=== PATIENT | female | born 1940 | race Caucasian/White ===

== ENCOUNTER 2018-03-25 21:06 | Inpatient (IN) | payer MEDICARE, MEDICAID ==
--- NOTE | 2018-03-25 21:33 | ED Physician Chart ---
ED Chief Complaint/HPI - Patient Information Date Seen:: 03/25/18 Time Seen:: 21:33 Chief Complaint:: Increased agitation History of Present Illness:: 77 yo [place]er-speaking female with history of Alzheimer's disease, DM2, adult failure to thrive, osteoarthritis, was brought from SNF to ER for evaluation of increased agitation and aggressive behavior. Patient is alert, confused, forgetful, paranoid and easily agitated. Allergies:: Allergies Allergy/AdvReac Type Severity Reaction Status Date / Time No Known Allergies Allergy Verified 03/25/18 21:28 ED Review of Systems - Review of Systems General/Constitutional: No fever, No chills Skin: No bruising Head: No headache Eyes: No pain ENT: No nasal drainage Neck: No neck pain Cardio Vascular: No chest pain Pulmonary: No SOB GI: No nausea, No vomiting Musculoskeletal: Bone or joint pain Psychiatric: Prior psych history Neurological: No focal symptoms ED Past Medical History - Past Medical History Past Medical History: DM, Arthritis, Dementia, Other (Alzheimer's disease, adult failure to thrive) Social History: Non Smoker, No Alcohol, No Drug Use Psychiatricy History: Dementia Family Medical History - Family Member Mother History Unknown: Yes Ethnicity: Unknown Living Status: Unknown ED Physical Exam - Physical Examination General/Constitutional: Awake Head: Atraumatic Eyes: PERRL Skin: No ecchymosis ENMT: Nasal exam nl Neck: No nuchal rigidity Respiratory: No Wheeze/Rhonchi/Rales Cardio Vascular: RRR, No murmur, gallop, rubs, NL S1 S2 GI: No tenderness/rebounding/guarding Extremities: normal strength in all extremities Neuro/Psych: No focal deficits ED Labs/Radiology/EKG Results - Lab Results Results: Laboratory Last Values WBC 10.1 Th/cmm (4.8-10.8) 03/25/18 21:47 RBC 4.86 Mil/cmm (3.80-5.20) 03/25/18 21:47 Hgb 13.8 gm/dL (12-16) 03/25/18 21:47 Hct 41.2 % (41.0-60) 03/25/18 21:47 MCV 84.9 fl (81-100) 03/25/18 21:47 MCH 28.3 pg (27.0-31.0) 03/25/18 21:47 MCHC Differential 33.4 pg (28.0-36.0) 03/25/18 21:47 RDW 13.0 % (11.5-20.0) 03/25/18 21:47 Plt Count 406 Th/cmm (150-400) H 03/25/18 21:47 MPV 6.9 fl 03/25/18 21:47 Neutrophils % 63.3 % (40.0-80.0) 03/25/18 21:47 Lymphocytes % 27.3 % (20.0-50.0) 03/25/18 21:47 Monocytes % 6.3 % (2.0-10.0) 03/25/18 21:47 Eosinophils % 2.8 % (0.0-5.0) 03/25/18 21:47 Basophils % 0.3 % (0.0-2.0) 03/25/18 21:47 Sodium 132 mEq/L (136-145) L 03/25/18 21:47 Potassium 3.3 mEq/L (3.5-5.1) L 03/25/18 21:47 Chloride 95 mEq/L (98-107) L 03/25/18 21:47 Carbon Dioxide 27.0 mEq/L (21.0-31.0) 03/25/18 21:47 Anion Gap 13.3 (7.0-16.0) 03/25/18 21:47 BUN 22 mg/dL (7-25) 03/25/18 21:47 Creatinine 1.0 mg/dL (0.6-1.2) 03/25/18 21:47 Est GFR ( Amer) TNP 03/25/18 21:47 Est GFR (Non-Af Amer) TNP 03/25/18 21:47 BUN/Creatinine Ratio 22.0 03/25/18 21:47 Glucose 253 mg/dL (70-105) H 03/25/18 21:47 POC Glucose 225 MG/DL (70 - 105) H 03/26/18 05:30 Calcium 9.6 mg/dL (8.6-10.3) 03/25/18 21:47 Total Bilirubin 0.3 mg/dL (0.3-1.0) 03/25/18 21:47 AST 16 U/L (13-39) 03/25/18 21:47 ALT 13 U/L (7-52) 03/25/18 21:47 Alkaline Phosphatase 94 U/L (34-104) 03/25/18 21:47 Troponin I 0.01 ng/mL (0.01-0.05) 03/25/18 21:47 B-Natriuretic Peptide 10.9 pg/mL (5.0-100.0) 03/25/18 21:47 Total Protein 7.4 gm/dL (6.0-8.3) 03/25/18 21:47 Albumin 3.9 gm/dL (3.7-5.3) 03/25/18 21:47 Globulin 3.5 gm/dL 03/25/18 21:47 Albumin/Globulin Ratio 1.1 (1.0-1.8) 03/25/18 21:47 TSH 2.09 uIU/ml (0.34-5.60) 03/25/18 21:47 ED Assessment - Assessment General Assessment: Hypokalemia Hyponatremia DM II Alzheimer's disease Osteoarthritis Psychosis Assessment/Comments:: CBC, CMP, BNP, Trop, HbA1c, UA CXR, EKG KCL 40mEq PO Admit to [facility] for further evaluation and management ED Septic Shock - . Is Septic Shock (SBP<90, OR Lactate>4 mmol\L) present?: No ED Reassessment (Disposition) - Reassessment Reassessment Condition:: Unchanged - Patient [facility] Admitting Medical Physician:: Odalys Sharp Admitting Psych Physician:: Nilam Edward
[2018-03-25 21:55] LABS: % BASOPHILS 0.3 % (0.0-2.0); % EOSINOPHILS 2.8 % (0.0-5.0); % LYMPHOCYTES 27.3 % (20.0-50.0); % MONOCYTES 6.3 % (2.0-10.0); % NEUTROPHILS 63.3 % (40.0-80.0); EOSINOPHILE ABSOLUTE 0.3 Th/cmm (0.1-0.4); HEMATOCRIT 41.2 % (41.0-60); HEMOGLOBIN 13.8 gm/dL (12-16); LYMPHOCYTE ABSOLUTE 2.8 Th/cmm (1.5-3.0); MEAN CELL VOLUME 84.9 fl (81-100); MEAN CORPUSCULAR HEMOGLOBIN 28.3 pg (27.0-31.0); MEAN CORPUSCULAR HGB CONC 33.4 pg (28.0-36.0); MEAN PLATELET VOLUME 6.9 fl; MONOCYTE ABSOLUTE 0.6 Th/cmm (0.3-1.0); NEUTROPHILE ABSOLUTE 6.4 Th/cmm (1.8-8.0); PLATELET COUNT 406 Th/cmm (150-400); RED BLOOD COUNT 4.86 Mil/cmm (3.80-5.20); WHITE BLOOD COUNT 10.1 Th/cmm (4.8-10.8)
[2018-03-25 22:10] LABS: ALB/GLOB RATIO 1.1 (1.0-1.8); ALBUMIN 3.9 gm/dL (3.7-5.3); ALKALINE PHOSPHATASE 94 U/L (34-104); ANION GAP 13.3 (7.0-16.0); BILIRUBIN,TOTAL 0.3 mg/dL (0.3-1.0); BUN - UREA NITROGEN 22 mg/dL (7-25); CALCIUM SERUM 9.6 mg/dL (8.6-10.3); CHLORIDE 95 mEq/L (98-107); GLUCOSE 253 mg/dL (70-105); POTASSIUM SERUM 3.3 mEq/L (3.5-5.1); SGOT 16 U/L (13-39); SGPT/ALT 13 U/L (7-52); SODIUM SERUM 132 mEq/L (136-145); TOTAL PROTEIN,SERUM 7.4 gm/dL (6.0-8.3)
[2018-03-25] MEDS ORDERED: Potassium Chloride 20 mEq ER Tab PO ONE ×2 (22:40→22:49)
[2018-03-26 00:20] VITALS: BP 117/64
[2018-03-26] MEDS ORDERED: Magnesium Hydroxide (MOM) 30 mL UDC PO PRN (00:41)
[2018-03-26] MEDS ORDERED: Fleet Enema 135 mL RC PRN (00:43)
[2018-03-26] MEDS ORDERED: INSULIN HUMAN ISOPHANE (NPH) 100 UNITS/ML SUBQ SCH ×2 (07:30→17:00)
--- NOTE | 2018-03-26 08:39 | Diagnostic Imaging Report ---
CHEST X-RAY: AP view INDICATION: Shortness of breath COMPARISON: None FINDINGS: Exam is limited due to body habitus. There is mild elevation of the right hemidiaphragm. There appears to the previous right lower rib fractures probably the right seventh rib and likely the right eighth rib. Increased bibasal lung markings are noted with mild elevation of the right hemidiaphragm. No focal consolidation or definite effusions. Borderline prominent heart is noted with atherosclerosis. Degenerative changes of the spine are noted. No pneumothorax. IMPRESSION: Chronic lung changes with increased bibasilar lung markings which may be due to atelectasis or scarring. No focal consolidation identified. If indicated PA and lateral views may be obtained for further assessment. There appear to be right lower rib fractures probably the right seventh rib and likely the right eighth rib. Findings may be chronic in etiology. Please correlate with clinical findings. No evidence of pneumothorax. Borderline cardiomegaly with atherosclerosis.
[2018-03-26] MEDS: INSULIN ASPART SLIDING SCALE 100 UNITS/ML UNIT SUBQ SCH ×3 (12:02→20:30)
[2018-03-26 14:28] LABS: CHOLESTEROL 149 mg/dL (<200); HDL -HIGH DENSITY LIPOPROTEIN 45 mg/dL (23-92); TRIGLYCERIDES 122 mg/dL (<150)
--- NOTE | 2018-03-26 22:11 | Psychiatric Evaluation ---
DATE OF SERVICE: PSYCHIATRIC INITIAL EVALUATION AND MENTAL STATUS EXAM PATIENT'S AGE: 77-year-old. SEX: Female. PHYSICIAN: Dr. Edward. CHIEF COMPLAINT: Yelling and screaming and verbal abuse. HISTORY OF PRESENT ILLNESS: The patient is a 77-year-old female who was transferred from [facility] because of increased agitation and irritability. The patient has been yelling and screaming and agitated and unable to follow any of staff directions. The patient also has been verbally abusive. The patient also has been angry upon coming to the hospital and she thinks that she came to the hospital because of heart condition. In the hospital, the patient also was trying to get off the door and banging on the doors. She also was not able to follow any of the staff's directions and needed lots of redirections to keep her calm. The patient also is angry with the staff and has been unable to calm down with the staff instructions. Also trying to leave the facility. PAST PSYCHIATRIC HISTORY: The patient has a history of what seems to be dementia that is mild. PAST MEDICAL HISTORY: The patient has non-insulin dependent diabetes mellitus. Also, in the Emergency Room, the patient had low potassium. SOCIAL HISTORY: The patient is . The patient has no children. No known alcohol or drug use. ALLERGIES: No known allergies. MENTAL STATUS EXAMINATION: The patient appears slightly older than her stated age. Irritable mood. Agitated. Thought processes are circumstantial and tangential with flight of ideas. The patient denies auditory or visual hallucinations but admits to paranoia. The patient denies suicidal or homicidal ideations. This interview was done with the help of translation from Hungarian to Greek and Greek to Hungarian because the patient does not speak Greek, but staff helped with translation. The patient is alert and oriented to time, place, person and situation. Impaired immediate memory, but intact remote memory. Poor insight and judgment. ASSESSMENT: PRIMARY DIAGNOSIS: Unspecified psychosis. SECONDARY DIAGNOSIS: Dementia, moderate, with psychotic features. MEDICAL DIAGNOSIS: Swu-[id number]-rqsbnfegm diabetes mellitus. TREATMENT PLAN: We will start the patient on Seroquel. We will start individual as well as milieu psychotherapy. We will monitor psychotropic medications. ESTIMATED LENGTH OF STAY: 5-7 days. THE PATIENT'S STRENGTHS AND WEAKNESSES: The patient's strength is not clear at this time. Weakness is poor judgment. AFTER DISCHARGE PLAN: The patient will return to [place] with plans for outpatient treatment and followup. [facility]# [id number]
[2018-03-27] MEDS: INSULIN ASPART SLIDING SCALE 100 UNITS/ML UNIT SUBQ SCH ×4 (06:47→20:30)
[2018-03-27] MEDS ORDERED: Non-Formulary Item 1 EA (Docusate Sodium [Docusate Sodium] 100 MG) PO SCH (09:00)
--- NOTE | 2018-03-27 11:46 | History & Physical ---
ADMIT DATE: 03/26/2018 HISTORY OF PRESENT ILLNESS: The patient came to the Emergency Room because of severe increase in agitation, was seen in the Emergency Room and was admitted. The patient is known to have history of Alzheimer's disease, history of diabetes, failure to thrive, osteoarthritis, and the patient is also known to have history of arthritis and the patient was admitted for severe agitation. The patient other than that ____. REVIEW OF SYSTEMS: System review is negative. PAST MEDICAL HISTORY: Diabetes, arthritis, dementia, Alzheimer's disease and failure to thrive. PHYSICAL EXAMINATION: HEAD: Normal. ENT: Normal. NECK: Supple, nontender. LUNGS: Clear. CARDIOVASCULAR SYSTEM: S1 and S2 heard. ABDOMEN: Soft. Bowel sounds are heard. CENTRAL NERVOUS SYSTEM: The patient has severe agitation. LABORATORY DATA: White count was 10.1, hemoglobin of 13.8. Potassium was low and glucose was 253. DIAGNOSES: History of diabetes, hypokalemia, hyponatremia, Alzheimer's disease, osteoarthritis, history of psychosis was made. PLAN: The patient is being admitted and I will go ahead and follow medically along with the psychiatrist and follow the patient. JOB# [id number]
--- NOTE | 2018-03-27 13:45 | Internal Medicine Prog Note ---
Internal Medicine Subjective - Subjective Service Date: 03/27/18 Patient seen and examined:: with staff Patient is:: awake Per staff patient has:: tolerating meds Internal Medicine Objective - Results Result Diagrams: 03/25/18 21:47 03/25/18 21:47 Recent Labs: Laboratory Last Values WBC 10.1 Th/cmm (4.8-10.8) 03/25/18 21:47 RBC 4.86 Mil/cmm (3.80-5.20) 03/25/18 21:47 Hgb 13.8 gm/dL (12-16) 03/25/18 21:47 Hct 41.2 % (41.0-60) 03/25/18 21:47 MCV 84.9 fl (81-100) 03/25/18 21:47 MCH 28.3 pg (27.0-31.0) 03/25/18 21:47 MCHC Differential 33.4 pg (28.0-36.0) 03/25/18 21:47 RDW 13.0 % (11.5-20.0) 03/25/18 21:47 Plt Count 406 Th/cmm (150-400) H 03/25/18 21:47 MPV 6.9 fl 03/25/18 21:47 Neutrophils % 63.3 % (40.0-80.0) 03/25/18 21:47 Lymphocytes % 27.3 % (20.0-50.0) 03/25/18 21:47 Monocytes % 6.3 % (2.0-10.0) 03/25/18 21:47 Eosinophils % 2.8 % (0.0-5.0) 03/25/18 21:47 Basophils % 0.3 % (0.0-2.0) 03/25/18 21:47 Sodium 132 mEq/L (136-145) L 03/25/18 21:47 Potassium 3.3 mEq/L (3.5-5.1) L 03/25/18 21:47 Chloride 95 mEq/L (98-107) L 03/25/18 21:47 Carbon Dioxide 27.0 mEq/L (21.0-31.0) 03/25/18 21:47 Anion Gap 13.3 (7.0-16.0) 03/25/18 21:47 BUN 22 mg/dL (7-25) 03/25/18 21:47 Creatinine 1.0 mg/dL (0.6-1.2) 03/25/18 21:47 Est GFR ( Amer) TNP 03/25/18 21:47 Est GFR (Non-Af Amer) TNP 03/25/18 21:47 BUN/Creatinine Ratio 22.0 03/25/18 21:47 Glucose 253 mg/dL (70-105) H 03/25/18 21:47 POC Glucose 215 MG/DL (70 - 105) H 03/27/18 11:51 Calcium 9.6 mg/dL (8.6-10.3) 03/25/18 21:47 Total Bilirubin 0.3 mg/dL (0.3-1.0) 03/25/18 21:47 AST 16 U/L (13-39) 03/25/18 21:47 ALT 13 U/L (7-52) 03/25/18 21:47 Alkaline Phosphatase 94 U/L (34-104) 03/25/18 21:47 Troponin I 0.01 ng/mL (0.01-0.05) 03/25/18 21:47 B-Natriuretic Peptide 10.9 pg/mL (5.0-100.0) 03/25/18 21:47 Total Protein 7.4 gm/dL (6.0-8.3) 03/25/18 21:47 Albumin 3.9 gm/dL (3.7-5.3) 03/25/18 21:47 Globulin 3.5 gm/dL 03/25/18 21:47 Albumin/Globulin Ratio 1.1 (1.0-1.8) 03/25/18 21:47 Triglycerides 122 mg/dL (<150) 03/26/18 06:00 Cholesterol 149 mg/dL (<200) 03/26/18 06:00 LDL Cholesterol Direct 93 mg/dL (75-193) 03/26/18 06:00 HDL Cholesterol 45 mg/dL (23-92) 03/26/18 06:00 TSH 2.09 uIU/ml (0.34-5.60) 03/25/18 21:47 - Physical Exam Vitals and I&O: Vital Signs Temp 97.7 F 11/08/18 07:29 Pulse 79 03/27/18 07:29 Resp 19 03/27/18 07:29 BP 144/73 03/27/18 07:29 Pulse Ox 97 03/27/18 07:29 Intake & Output 03/26/18 03/27/18 03/27/18 18:59 06:59 18:59 Intake Total 120 Balance 120 Weight (lbs) 185 lb Intake: Oral 120 Other: # Voids 3 2 # Bowel Movements 1 Stool Characteristics Soft Soft Weight Source Standing scale Active Medications: Current Medications Acetaminophen (Tylenol) 650 mg PO Q4HR PRN PRN Reason: Mild Pain / Temp above 100 Stop: 05/25/18 00:35 Acetaminophen (Tylenol) 650 mg PO Q4HR PRN PRN Reason: MILD PAIN AND TEMP >101.F Stop: 05/26/18 08:14 Bisacodyl (Dulcolax 10 Mg Supp) 10 mg RC DAILY [facility] Stop: 05/25/18 08:59 Last Admin: 03/27/18 08:28 Dose: 10 mg Docusate Sodium (Colace) 100 mg PO DAILY [facility] Stop: 05/25/18 08:59 Last Admin: 03/27/18 08:28 Dose: 100 mg Insulin Aspart (Novolog Insulin Sliding Scale) 0 units SUBQ ACHS [facility]; Protocol Stop: 05/25/18 11:29 Last Admin: 03/27/18 11:59 Dose: 4 units Insulin Human NPH (Novolin N) 30 units SUBQ QPM [facility]; Protocol Stop: 05/25/18 16:59 Lorazepam (Ativan) 0.5 mg PO Q4HR PRN; Protocol PRN Reason: Anxiety Stop: 04/25/18 00:35 Magnesium Hydroxide (Milk Of Magnesia) 30 ml PO HS PRN PRN Reason: Constipation Stop: 05/25/18 00:40 Metformin HCl (Glucophage) 500 mg PO BID [facility] Stop: 05/25/18 08:59 Last Admin: 03/27/18 08:28 Dose: 500 mg Quetiapine Fumarate (Seroquel) 12.5 mg PO BID [facility]; Protocol Stop: 05/25/18 08:59 Last Admin: 03/27/18 08:28 Dose: 12.5 mg Sodium Phosphate (Fleet Enema) 135 ml RC Q48HR PRN PRN Reason: Constipation Stop: 05/25/18 00:42 Zolpidem Tartrate (Ambien) 5 mg PO HS PRN PRN Reason: Insomnia Stop: 05/25/18 00:35 General: alert HEENT: NC/AT, PERRLA Neck: Supple Lungs: CTAB Cardiovascular: RRR, Normal S1, Normal S2 Abdomen: soft, non-tender Extremities: excoriation Neurological: no change Internal Medicine Assmt/Plan - Assessment Assessment: DM Arthritis Dementia Alzheimer's disease psychosis - Plan Plan: cpm Nutritional Asmnt/Malnutr-PDOC - Dietary Evaluation Malnutrition Findings (Please click <Entered> for more info): Nutritional Asmnt/Malnutrition Start: 03/26/18 11: 07 Text: Status: Complete Freq: Protocol: Document 03/26/18 11:07 LCMINAG (Rec: 03/26/18 11:18 [email or web address]) Nutritional Asmnt/Malnutrition Patient General Information Nutritional Screening High Risk Diagnosis psychosis Pertinent Medical Hx/Surgical Hx DM, arthritis, dementia, alzheimer/s disease, adult FTT . dementia Subjective Information Glucose 253 at admission noted . Pt seen eating lunch in her room, Urdu speaking. D/t language barrier, not able to provide nutrition education. Pt appeared good appetite. Per EMR, PO intake 100% of breakfast today. Current Diet Order/ Nutrition Support [facility]-45 Pertinent Medications colace, novolog, novolin, glucophage, seroquel Pertinent Labs 03/26 POC 225 03/25 Na 132, K 3.3, Cl 95, glucose 253 Nutritional Hx/Data Height 5 ft 3 in Height (Calculated Centimeters) 160.0 Current Weight (lbs) 185 lb Weight (Calculated Kilograms) 83.9 Weight (Calculated Grams) 55418.6 [place] Body Weight 115 Body Mass Index (BMI) 32.8 Weight Status Obese GI Symptoms GI Symptoms None Last BM none noted Difficult in: None Skin Integrity/Comment: intact juventino 20 Current %PO Good (75-100%) Estimated Nutritional Goals BEE in Kcals: Adj wt of IBW Calories/Kcals/Kg 25-30 adj wt 58kg Kcals Calculated [id number] Protein: Adj wt of IBW Protein g/k-1.2 Protein Calculated 58-70 Fluid: ml 1450-1740ml (1ml/kcal) Nutritional Problem 1. Problem Problem altered nutrition related labs Etiology hyperglycemia, electrolytes imbalance Signs/Symptoms: POC 225, Na 132, K 3.3, Cl 95, glucose 253 Malnutrition Alert Is there a minimum of two criteria No selected? Query Text:Check all the applicable criteria. A minimum of two criteria are recommended for diagnosis of either severe or non-severe malnutrition. Malnutrition Related to Morbid Obesity Malnutrition related to morbid obesity No Intervention/Recommendation Comments 1. Continue with [facility] 45gm, KOMAL, low fat diet as ordered. MD to adjust insulin for optimal glycemic control. 2. Monitor PO intake, wt, labs and skin integrity 3. F/U as moderate risk in 3-5 days, 03/29-03/31 Expected Outcomes/Goals Expected Outcomes/Goals 1. PO intake to meet at least 75% of nutritional needs. 2. Wt stability, skin to remain intact, labs to approach WNL.
--- NOTE | 2018-03-28 05:34 | Progress Notes ---
DATE: 03/27/2018 SUBJECTIVE: Chart reviewed and the patient interviewed. Also discussed the patient's condition with the staff and reviewed records and labs. The patient is still confused and forgetful. The patient also is withdrawn. The patient also is still easily agitated and easily irritable and needs close monitoring. Otherwise, the patient is sleeping well and her appetite is fair. ASSESSMENT: The patient is still psychotic. TREATMENT PLAN: Continue to monitor her behavior and her condition closely. Also, we will continue Seroquel dose of 12.5 mg twice a day and we will continue to follow up closely. JOB# [id number]
[2018-03-28] MEDS: INSULIN ASPART SLIDING SCALE 100 UNITS/ML UNIT SUBQ SCH ×4 (06:37→20:18)
--- NOTE | 2018-03-28 14:03 | Internal Medicine Prog Note ---
Internal Medicine Subjective - Subjective Patient seen and examined:: chart reviewed (still psychotic ,confused ) Patient is:: awake Per staff patient has:: tolerating meds Internal Medicine Objective - Results Result Diagrams: 03/25/18 21:47 03/25/18 21:47 Recent Labs: Laboratory Last Values WBC 10.1 Th/cmm (4.8-10.8) 03/25/18 21:47 RBC 4.86 Mil/cmm (3.80-5.20) 03/25/18 21:47 Hgb 13.8 gm/dL (12-16) 03/25/18 21:47 Hct 41.2 % (41.0-60) 03/25/18 21:47 MCV 84.9 fl (81-100) 03/25/18 21:47 MCH 28.3 pg (27.0-31.0) 03/25/18 21:47 MCHC Differential 33.4 pg (28.0-36.0) 03/25/18 21:47 RDW 13.0 % (11.5-20.0) 03/25/18 21:47 Plt Count 406 Th/cmm (150-400) H 03/25/18 21:47 MPV 6.9 fl 03/25/18 21:47 Neutrophils % 63.3 % (40.0-80.0) 03/25/18 21:47 Lymphocytes % 27.3 % (20.0-50.0) 03/25/18 21:47 Monocytes % 6.3 % (2.0-10.0) 03/25/18 21:47 Eosinophils % 2.8 % (0.0-5.0) 03/25/18 21:47 Basophils % 0.3 % (0.0-2.0) 03/25/18 21:47 Sodium 132 mEq/L (136-145) L 03/25/18 21:47 Potassium 3.3 mEq/L (3.5-5.1) L 03/25/18 21:47 Chloride 95 mEq/L (98-107) L 03/25/18 21:47 Carbon Dioxide 27.0 mEq/L (21.0-31.0) 03/25/18 21:47 Anion Gap 13.3 (7.0-16.0) 03/25/18 21:47 BUN 22 mg/dL (7-25) 03/25/18 21:47 Creatinine 1.0 mg/dL (0.6-1.2) 03/25/18 21:47 Est GFR ( Amer) TNP 03/25/18 21:47 Est GFR (Non-Af Amer) TNP 03/25/18 21:47 BUN/Creatinine Ratio 22.0 03/25/18 21:47 Glucose 253 mg/dL (70-105) H 03/25/18 21:47 POC Glucose 272 MG/DL (70 - 105) H 03/28/18 11:15 Calcium 9.6 mg/dL (8.6-10.3) 03/25/18 21:47 Total Bilirubin 0.3 mg/dL (0.3-1.0) 03/25/18 21:47 AST 16 U/L (13-39) 03/25/18 21:47 ALT 13 U/L (7-52) 03/25/18 21:47 Alkaline Phosphatase 94 U/L (34-104) 03/25/18 21:47 Troponin I 0.01 ng/mL (0.01-0.05) 03/25/18 21:47 B-Natriuretic Peptide 10.9 pg/mL (5.0-100.0) 03/25/18 21:47 Total Protein 7.4 gm/dL (6.0-8.3) 03/25/18 21:47 Albumin 3.9 gm/dL (3.7-5.3) 03/25/18 21:47 Globulin 3.5 gm/dL 03/25/18 21:47 Albumin/Globulin Ratio 1.1 (1.0-1.8) 03/25/18 21:47 Triglycerides 122 mg/dL (<150) 03/26/18 06:00 Cholesterol 149 mg/dL (<200) 03/26/18 06:00 LDL Cholesterol Direct 93 mg/dL (75-193) 03/26/18 06:00 HDL Cholesterol 45 mg/dL (23-92) 03/26/18 06:00 TSH 2.09 uIU/ml (0.34-5.60) 03/25/18 21:47 - Physical Exam Vitals and I&O: Vital Signs Temp 97.8 F 03/28/18 06:51 Pulse 75 03/28/18 06:51 Resp 19 03/28/18 06:51 BP 121/62 03/28/18 06:51 Pulse Ox 95 03/28/18 06:51 Intake & Output 03/27/18 03/28/18 03/28/18 18:59 06:59 18:59 Intake Total 1720 120 Balance 1720 120 Intake: Oral 1720 120 Other: # Voids 4 3 # Bowel Movements 2 Stool Characteristics Soft Active Medications: Current Medications Acetaminophen (Tylenol) 650 mg PO Q4HR PRN PRN Reason: Mild Pain / Temp above 100 Stop: 05/25/18 00:35 Acetaminophen (Tylenol) 650 mg PO Q4HR PRN PRN Reason: MILD PAIN AND TEMP >101.F Stop: 05/26/18 08:14 Bisacodyl (Dulcolax 10 Mg Supp) 10 mg RC DAILY PRN PRN Reason: Constipation Stop: 05/26/18 14:21 Docusate Sodium (Colace) 100 mg PO DAILY [facility] Stop: 05/25/18 08:59 Last Admin: 03/28/18 08:55 Dose: 100 mg Insulin Aspart (Novolog Insulin Sliding Scale) 0 units SUBQ ACHS [facility]; Protocol Stop: 05/25/18 11:29 Last Admin: 03/28/18 11:32 Dose: 6 units Lorazepam (Ativan) 0.5 mg PO Q4HR PRN; Protocol PRN Reason: Anxiety Stop: 04/25/18 00:35 Magnesium Hydroxide (Milk Of Magnesia) 30 ml PO HS PRN PRN Reason: Constipation Stop: 05/25/18 00:40 Metformin HCl (Glucophage) 500 mg PO BID [facility] Stop: 05/25/18 08:59 Last Admin: 03/28/18 08:54 Dose: 500 mg Quetiapine Fumarate (Seroquel) 12.5 mg PO BID [facility]; Protocol Stop: 05/25/18 08:59 Last Admin: 03/28/18 08:54 Dose: 12.5 mg Sodium Phosphate (Fleet Enema) 135 ml RC Q48HR PRN PRN Reason: Constipation Stop: 05/25/18 00:42 Zolpidem Tartrate (Ambien) 5 mg PO HS PRN PRN Reason: Insomnia Stop: 05/25/18 00:35 General: alert HEENT: NC/AT, PERRLA Neck: Supple Lungs: CTAB Cardiovascular: RRR, Normal S1, Normal S2 Abdomen: soft, non-tender Extremities: excoriation Neurological: no change Internal Medicine Assmt/Plan - Assessment Assessment: DM Arthritis Dementia Alzheimer's disease psychosis - Plan Plan: as per psych will monitor Nutritional Asmnt/Malnutr-PDOC - Dietary Evaluation Malnutrition Findings (Please click <Entered> for more info): Nutritional Asmnt/Malnutrition Start: 03/26/18 11: 07 Text: Status: Complete Freq: Protocol: Document 03/26/18 11:07 LCHENG (Rec: 03/26/18 11:18 [email or web address]) Nutritional Asmnt/Malnutrition Patient General Information Nutritional Screening High Risk Diagnosis psychosis Pertinent Medical Hx/Surgical Hx DM, arthritis, dementia, alzheimer/s disease, adult FTT . dementia Subjective Information Glucose 253 at admission noted . Pt seen eating lunch in her room, English speaking. D/t language barrier, not able to provide nutrition education. Pt appeared good appetite. Per EMR, PO intake 100% of breakfast today. Current Diet Order/ Nutrition Support [facility]-45 Pertinent Medications colace, novolog, novolin, glucophage, seroquel Pertinent Labs 03/26 POC 225 03/25 Na 132, K 3.3, Cl 95, glucose 253 Nutritional Hx/Data Height 1.6 m Height (Calculated Centimeters) 160.0 Current Weight (lbs) 83.915 kg Weight (Calculated Kilograms) 83.9 Weight (Calculated Grams) 66785.6 [place] Body Weight 115 Body Mass Index (BMI) 32.8 Weight Status Obese GI Symptoms GI Symptoms None Last BM none noted Difficult in: None Skin Integrity/Comment: intact juventino 20 Current %PO Good (75-100%) Estimated Nutritional Goals BEE in Kcals: Adj wt of IBW Calories/Kcals/Kg 25-30 adj wt 58kg Kcals Calculated 8810-3583 Protein: Adj wt of IBW Protein g/k-1.2 Protein Calculated 58-70 Fluid: ml 1450-1740ml (1ml/kcal) Nutritional Problem 1. Problem Problem altered nutrition related labs Etiology hyperglycemia, electrolytes imbalance Signs/Symptoms: POC 225, Na 132, K 3.3, Cl 95, glucose 253 Malnutrition Alert Is there a minimum of two criteria No selected? Query Text:Check all the applicable criteria. A minimum of two criteria are recommended for diagnosis of either severe or non-severe malnutrition. Malnutrition Related to Morbid Obesity Malnutrition related to morbid obesity No Intervention/Recommendation Comments 1. Continue with [facility] 45gm, KOMAL, low fat diet as ordered. MD to adjust insulin for optimal glycemic control. 2. Monitor PO intake, wt, labs and skin integrity 3. F/U as moderate risk in 3-5 days, 03/29-03/31 Expected Outcomes/Goals Expected Outcomes/Goals 1. PO intake to meet at least 75% of nutritional needs. 2. Wt stability, skin to remain intact, labs to approach WNL.
[2018-03-29] MEDS: INSULIN ASPART SLIDING SCALE 100 UNITS/ML UNIT SUBQ SCH ×4 (06:29→20:16)
--- NOTE | 2018-03-29 16:25 | Progress Notes ---
DATE: 03/29/2018 SUBJECTIVE: The patient was seen in her room. The patient is asleep, but easily arousable. The patient is a poor historian due to medical condition, appears to be guarded, still gets frustrated. Otherwise, the patient appears to be in no acute distress. OBJECTIVE: VITAL SIGNS: Temperature 98.1, heart rate 81, blood pressure 135/69, respirations 20, and 98% on room air. HEENT: Head is atraumatic and normocephalic. Eyes: Bilateral conjunctivae are clear. Bilateral pupils are equally round and reactive. NECK: Supple. No JVD. CARDIOVASCULAR: S1 and S2, without murmur. PULMONARY: Clear to auscultation. GASTROINTESTINAL: Soft and nontender without guarding. Positive bowel sounds. MUSCULOSKELETAL: No clubbing. No cyanosis noted. ASSESSMENT: 1. Psychosis. 2. Dementia. 3. Diabetes. 4. Osteoarthritis. PLAN: We will keep the patient inpatient Psychiatric Unit. We will follow up with the psychiatrist to monitor the patient's condition and behavior. Treatment plans were discussed with the patient's nurse. Treatment plans were discussed with Dr. Sharp. JOB# [id number]
--- NOTE | 2018-03-30 05:17 | Progress Notes ---
DATE: 03/29/2018 SUBJECTIVE: A 77-year-old female who was brought in here from a home presenting yelling, screaming, disorganized. Today on [id number] evaluation, the patient continues to present disorganized, believing that she is going to be transported to [place] tomorrow and disengaged. MEDICATIONS: Include Ativan as needed, Seroquel 25 mg a day. No side effects noted. ASSESSMENT AND PLAN: The patient is a 77-year-old female neurocognitively impaired and continues to be disorganized, as noted above, unable to formulate a safe plan outside the structured environment. We will continue to monitor and evaluate with primary psychiatrist treatment team and goals. JOB# [id number]
--- NOTE | 2018-03-30 05:59 | Progress Notes ---
DATE: SUBJECTIVE: Chart reviewed and the patient interviewed. Also discussed the patient's condition with the staff and reviewed records and labs. The patient is still anxious. The patient also is still agitated and in irritable mood. She also is still interacting minimally with others and wants to be left alone and the patient is still depressed. She also is easier to follow directions. Otherwise, the patient is compliant with taking her medications with no side effects of medications. ASSESSMENT: The patient is still depressed and anxious. TREATMENT PLAN: Continue to monitor her behavior and her condition closely. Also, continue adjusting psychotropic medications and follow up closely. [facility]# [id number]
[2018-03-30] MEDS: INSULIN ASPART SLIDING SCALE 100 UNITS/ML UNIT SUBQ SCH ×4 (06:34→21:10)
--- NOTE | 2018-03-30 11:23 | Internal Medicine Prog Note ---
Internal Medicine Subjective - Subjective Patient seen and examined:: chart reviewed Patient is:: awake, other (depress withdrawn) Per staff patient has:: tolerating meds Internal Medicine Objective - Results Result Diagrams: 03/25/18 21:47 03/25/18 21:47 Recent Labs: Laboratory Last Values WBC 10.1 Th/cmm (4.8-10.8) 03/25/18 21:47 RBC 4.86 Mil/cmm (3.80-5.20) 03/25/18 21:47 Hgb 13.8 gm/dL (12-16) 03/25/18 21:47 Hct 41.2 % (41.0-60) 03/25/18 21:47 MCV 84.9 fl (81-100) 03/25/18 21:47 MCH 28.3 pg (27.0-31.0) 03/25/18 21:47 MCHC Differential 33.4 pg (28.0-36.0) 03/25/18 21:47 RDW 13.0 % (11.5-20.0) 03/25/18 21:47 Plt Count 406 Th/cmm (150-400) H 03/25/18 21:47 MPV 6.9 fl 03/25/18 21:47 Neutrophils % 63.3 % (40.0-80.0) 03/25/18 21:47 Lymphocytes % 27.3 % (20.0-50.0) 03/25/18 21:47 Monocytes % 6.3 % (2.0-10.0) 03/25/18 21:47 Eosinophils % 2.8 % (0.0-5.0) 03/25/18 21:47 Basophils % 0.3 % (0.0-2.0) 03/25/18 21:47 Sodium 132 mEq/L (136-145) L 03/25/18 21:47 Potassium 3.3 mEq/L (3.5-5.1) L 03/25/18 21:47 Chloride 95 mEq/L (98-107) L 03/25/18 21:47 Carbon Dioxide 27.0 mEq/L (21.0-31.0) 03/25/18 21:47 Anion Gap 13.3 (7.0-16.0) 03/25/18 21:47 BUN 22 mg/dL (7-25) 03/25/18 21:47 Creatinine 1.0 mg/dL (0.6-1.2) 03/25/18 21:47 Est GFR ( Amer) TNP 03/25/18 21:47 Est GFR (Non-Af Amer) TNP 03/25/18 21:47 BUN/Creatinine Ratio 22.0 03/25/18 21:47 Glucose 253 mg/dL (70-105) H 03/25/18 21:47 POC Glucose 241 MG/DL (70 - 105) H 03/30/18 11:06 Calcium 9.6 mg/dL (8.6-10.3) 03/25/18 21:47 Total Bilirubin 0.3 mg/dL (0.3-1.0) 03/25/18 21:47 AST 16 U/L (13-39) 03/25/18 21:47 ALT 13 U/L (7-52) 03/25/18 21:47 Alkaline Phosphatase 94 U/L (34-104) 03/25/18 21:47 Troponin I 0.01 ng/mL (0.01-0.05) 03/25/18 21:47 B-Natriuretic Peptide 10.9 pg/mL (5.0-100.0) 03/25/18 21:47 Total Protein 7.4 gm/dL (6.0-8.3) 03/25/18 21:47 Albumin 3.9 gm/dL (3.7-5.3) 03/25/18 21:47 Globulin 3.5 gm/dL 03/25/18 21:47 Albumin/Globulin Ratio 1.1 (1.0-1.8) 03/25/18 21:47 Triglycerides 122 mg/dL (<150) 03/26/18 06:00 Cholesterol 149 mg/dL (<200) 03/26/18 06:00 LDL Cholesterol Direct 93 mg/dL (75-193) 03/26/18 06:00 HDL Cholesterol 45 mg/dL (23-92) 03/26/18 06:00 TSH 2.09 uIU/ml (0.34-5.60) 03/25/18 21:47 - Physical Exam Vitals and I&O: Vital Signs Temp 97.9 F 03/30/18 06:15 Pulse 68 03/30/18 06:15 Resp 18 03/30/18 06:15 BP 117/74 03/30/18 06:15 Pulse Ox 94 03/30/18 06:15 Intake & Output 03/29/18 03/30/18 03/30/18 18:59 06:59 18:59 Intake Total 240 Output Total 1 Balance 239 Intake: Oral 240 Output: Urine/Stool Mix 1 Other: # Voids 1 Active Medications: Current Medications Acetaminophen (Tylenol) 650 mg PO Q4HR PRN PRN Reason: Mild Pain / Temp above 100 Stop: 05/25/18 00:35 Acetaminophen (Tylenol) 650 mg PO Q4HR PRN PRN Reason: MILD PAIN AND TEMP >101.F Stop: 05/26/18 08:14 Bisacodyl (Dulcolax 10 Mg Supp) 10 mg RC DAILY PRN PRN Reason: Constipation Stop: 05/26/18 14:21 Docusate Sodium (Colace) 100 mg PO DAILY [facility] Stop: 05/25/18 08:59 Last Admin: 03/30/18 08:22 Dose: 100 mg Insulin Aspart (Novolog Insulin Sliding Scale) 0 units SUBQ ACHS [facility]; Protocol Stop: 05/25/18 11:29 Last Admin: 03/30/18 11:19 Dose: 4 units Lorazepam (Ativan) 0.5 mg PO Q4HR PRN; Protocol PRN Reason: Anxiety Stop: 04/25/18 00:35 Magnesium Hydroxide (Milk Of Magnesia) 30 ml PO HS PRN PRN Reason: Constipation Stop: 05/25/18 00:40 Metformin HCl (Glucophage) 500 mg PO BID [facility] Stop: 05/25/18 08:59 Last Admin: 03/30/18 08:22 Dose: 500 mg Quetiapine Fumarate (Seroquel) 12.5 mg PO BID [facility]; Protocol Stop: 05/25/18 08:59 Last Admin: 03/30/18 08:22 Dose: 12.5 mg Sodium Phosphate (Fleet Enema) 135 ml RC Q48HR PRN PRN Reason: Constipation Stop: 05/25/18 00:42 Zolpidem Tartrate (Ambien) 5 mg PO HS PRN PRN Reason: Insomnia Stop: 05/25/18 00:35 General: alert HEENT: NC/AT, PERRLA Neck: Supple Lungs: CTAB Cardiovascular: RRR, Normal S1, Normal S2 Abdomen: soft, non-tender Extremities: excoriation Neurological: no change Internal Medicine Assmt/Plan - Assessment Assessment: DM Arthritis Dementia Alzheimer's disease psychosis - Plan Plan: as per psych will monitor Nutritional Asmnt/Malnutr-PDOC - Dietary Evaluation Malnutrition Findings (Please click <Entered> for more info): Nutritional Asmnt/Malnutrition Start: 03/26/18 11: 07 Text: Status: Complete Freq: Protocol: Document 03/26/18 11:07 [facility] (Rec: 03/26/18 11:18 [facility] [email or web address]) Nutritional Asmnt/Malnutrition Patient General Information Nutritional Screening High Risk Diagnosis psychosis Pertinent Medical Hx/Surgical Hx DM, arthritis, dementia, alzheimer/s disease, adult FTT . dementia Subjective Information Glucose 253 at admission noted . Pt seen eating lunch in her room, Irish speaking. D/t language barrier, not able to provide nutrition education. Pt appeared good appetite. Per EMR, PO intake 100% of breakfast today. Current Diet [facility]/ [facility] Pertinent Medications colace, novolog, novolin, glucophage, seroquel Pertinent Labs 03/26 POC 225 03/25 Na 132, K 3.3, Cl 95, glucose 253 Nutritional Hx/Data Height 1.6 m Height (Calculated Centimeters) 160.0 Current Weight (lbs) 83.915 kg Weight (Calculated Kilograms) 83.9 Weight (Calculated Grams) 70714.6 [place] Body Weight 115 Body Mass Index (BMI) 32.8 Weight Status Obese GI Symptoms GI Symptoms None Last BM none noted Difficult in: None Skin Integrity/Comment: intact juventino 20 Current %PO Good (75-100%) Estimated Nutritional Goals BEE in Kcals: Adj wt of IBW Calories/Kcals/Kg 25-30 adj wt 58kg Kcals Calculated 9509-3493 Protein: Adj wt of IBW Protein g/k-1.2 Protein Calculated 58-70 Fluid: ml 1450-1740ml (1ml/kcal) Nutritional Problem 1. Problem Problem altered nutrition related labs Etiology hyperglycemia, electrolytes imbalance Signs/Symptoms: POC 225, Na 132, K 3.3, Cl 95, glucose 253 Malnutrition Alert Is there a minimum of two criteria No selected? Query Text:Check all the applicable criteria. A minimum of two criteria are recommended for diagnosis of either severe or non-severe malnutrition. Malnutrition Related to Morbid Obesity Malnutrition related to morbid obesity No Intervention/Recommendation Comments 1. [facility] KOM[facility], low fat diet as ordered. MD to adjust insulin for optimal glycemic control. 2. Monitor PO intake, wt, labs and skin integrity 3. F/U as moderate risk in 3-5 days, 03/29-03/31 Expected Outcomes/Goals Expected Outcomes/Goals 1. PO intake to meet at least 75% of nutritional needs. 2. Wt stability, skin to remain intact, labs to approach WNL.
--- NOTE | 2018-03-31 01:31 | Progress Notes ---
DATE: 03/30/2018 SUBJECTIVE: The patient was seen and evaluated. The patient's chart reviewed. This is Dr. Kirby's psychiatric followup note Today on [id number] evaluation on date 03/30/2018. The patient continues to perseverate about going to [place]. The people going from [place] directed to come and pick her up. On examination, depressed, anxious, infections. ASSESSMENT AND PLAN: We will continue monitoring, evaluating her condition. She continues to present disorganized and easily agitated with irritable mood. JOB# [id number]
[2018-03-31] MEDS: INSULIN ASPART SLIDING SCALE 100 UNITS/ML UNIT SUBQ SCH ×4 (06:40→20:45)
--- NOTE | 2018-03-31 10:28 | Internal Medicine Prog Note ---
Internal Medicine Subjective - Subjective Patient seen and examined:: chart reviewed Patient is:: awake, other (still depressed) Per staff patient has:: tolerating meds Internal Medicine Objective - Results Result Diagrams: 03/25/18 21:47 03/25/18 21:47 Recent Labs: Laboratory Last Values WBC 10.1 Th/cmm (4.8-10.8) 03/25/18 21:47 RBC 4.86 Mil/cmm (3.80-5.20) 03/25/18 21:47 Hgb 13.8 gm/dL (12-16) 03/25/18 21:47 Hct 41.2 % (41.0-60) 03/25/18 21:47 MCV 84.9 fl (81-100) 03/25/18 21:47 MCH 28.3 pg (27.0-31.0) 03/25/18 21:47 MCHC Differential 33.4 pg (28.0-36.0) 03/25/18 21:47 RDW 13.0 % (11.5-20.0) 03/25/18 21:47 Plt Count 406 Th/cmm (150-400) H 03/25/18 21:47 MPV 6.9 fl 03/25/18 21:47 Neutrophils % 63.3 % (40.0-80.0) 03/25/18 21:47 Lymphocytes % 27.3 % (20.0-50.0) 03/25/18 21:47 Monocytes % 6.3 % (2.0-10.0) 03/25/18 21:47 Eosinophils % 2.8 % (0.0-5.0) 03/25/18 21:47 Basophils % 0.3 % (0.0-2.0) 03/25/18 21:47 Sodium 132 mEq/L (136-145) L 03/25/18 21:47 Potassium 3.3 mEq/L (3.5-5.1) L 03/25/18 21:47 Chloride 95 mEq/L (98-107) L 03/25/18 21:47 Carbon Dioxide 27.0 mEq/L (21.0-31.0) 03/25/18 21:47 Anion Gap 13.3 (7.0-16.0) 03/25/18 21:47 BUN 22 mg/dL (7-25) 03/25/18 21:47 Creatinine 1.0 mg/dL (0.6-1.2) 03/25/18 21:47 Est GFR ( Amer) TNP 03/25/18 21:47 Est GFR (Non-Af Amer) TNP 03/25/18 21:47 BUN/Creatinine Ratio 22.0 03/25/18 21:47 Glucose 253 mg/dL (70-105) H 03/25/18 21:47 POC Glucose 190 MG/DL (70 - 105) H 03/31/18 06:01 Calcium 9.6 mg/dL (8.6-10.3) 03/25/18 21:47 Total Bilirubin 0.3 mg/dL (0.3-1.0) 03/25/18 21:47 AST 16 U/L (13-39) 03/25/18 21:47 ALT 13 U/L (7-52) 03/25/18 21:47 Alkaline Phosphatase 94 U/L (34-104) 03/25/18 21:47 Troponin I 0.01 ng/mL (0.01-0.05) 03/25/18 21:47 B-Natriuretic Peptide 10.9 pg/mL (5.0-100.0) 03/25/18 21:47 Total Protein 7.4 gm/dL (6.0-8.3) 03/25/18 21:47 Albumin 3.9 gm/dL (3.7-5.3) 03/25/18 21:47 Globulin 3.5 gm/dL 03/25/18 21:47 Albumin/Globulin Ratio 1.1 (1.0-1.8) 03/25/18 21:47 Triglycerides 122 mg/dL (<150) 03/26/18 06:00 Cholesterol 149 mg/dL (<200) 03/26/18 06:00 LDL Cholesterol Direct 93 mg/dL (75-193) 03/26/18 06:00 HDL Cholesterol 45 mg/dL (23-92) 03/26/18 06:00 TSH 2.09 uIU/ml (0.34-5.60) 03/25/18 21:47 - Physical Exam Vitals and I&O: Vital Signs Temp 98.1 F 03/31/18 06:30 Pulse 79 03/31/18 06:30 Resp 20 03/31/18 06:30 BP 129/67 03/31/18 06:30 Pulse Ox 100 03/31/18 06:30 Intake & Output 03/30/18 03/31/18 03/31/18 18:59 06:59 18:59 Intake Total 240 Balance 240 Intake: Oral 240 Other: # Voids 3 # Bowel Movements 1 0 Active Medications: Current Medications Acetaminophen (Tylenol) 650 mg PO Q4HR PRN PRN Reason: Mild Pain / Temp above 100 Stop: 05/25/18 00:35 Acetaminophen (Tylenol) 650 mg PO Q4HR PRN PRN Reason: MILD PAIN AND TEMP >101.F Stop: 05/26/18 08:14 Bisacodyl (Dulcolax 10 Mg Supp) 10 mg RC DAILY PRN PRN Reason: Constipation Stop: 05/26/18 14:21 Docusate Sodium (Colace) 100 mg PO DAILY [facility] Stop: 05/25/18 08:59 Last Admin: 03/31/18 08:16 Dose: 100 mg Insulin Aspart (Novolog Insulin Sliding Scale) 0 units SUBQ ACHS [facility]; Protocol Stop: 05/25/18 11:29 Last Admin: 03/31/18 06:40 Dose: 2 units Lorazepam (Ativan) 0.5 mg PO Q4HR PRN; Protocol PRN Reason: Anxiety Stop: 04/25/18 00:35 Magnesium Hydroxide (Milk Of Magnesia) 30 ml PO HS PRN PRN Reason: Constipation Stop: 05/25/18 00:40 Metformin HCl (Glucophage) 500 mg PO BID [facility] Stop: 05/25/18 08:59 Last Admin: 03/31/18 08:16 Dose: 500 mg Quetiapine Fumarate (Seroquel) 12.5 mg PO BID [facility]; Protocol Stop: 05/25/18 08:59 Last Admin: 03/31/18 08:16 Dose: 12.5 mg Sodium Phosphate (Fleet Enema) 135 ml RC Q48HR PRN PRN Reason: Constipation Stop: 05/25/18 00:42 Zolpidem Tartrate (Ambien) 5 mg PO HS PRN PRN Reason: Insomnia Stop: 05/25/18 00:35 General: alert HEENT: NC/AT, PERRLA Neck: Supple Lungs: CTAB Cardiovascular: RRR, Normal S1, Normal S2 Abdomen: soft, non-tender Extremities: excoriation Neurological: no change Internal Medicine Assmt/Plan - Assessment Assessment: DM Arthritis Dementia Alzheimer's disease psychosis - Plan Plan: as per psych will monitor Nutritional Asmnt/Malnutr-PDOC - Dietary Evaluation Malnutrition Findings (Please click <Entered> for more info): Nutritional Asmnt/Malnutrition Start: 03/26/18 11: 07 Text: Status: Complete Freq: Protocol: Document 03/26/18 11:07 [facility] (Rec: 03/26/18 11:18 [facility] [email or web address]) Nutritional Asmnt/Malnutrition Patient General Information Nutritional Screening High Risk Diagnosis psychosis Pertinent Medical Hx/Surgical Hx DM, arthritis, dementia, alzheimer/s disease, adult FTT . dementia Subjective Information Glucose 253 at admission noted . Pt seen eating lunch in her room, Lao speaking. D/t language barrier, not able to provide nutrition education. Pt appeared good appetite. Per EMR, PO intake 100% of breakfast today. Current Diet Order/ Nutrition Support [facility] Pertinent Medications colace, novolog, novolin, glucophage, seroquel Pertinent Labs 03/26 POC 225 11 Na 132, K 3.3, Cl 95, glucose 253 Nutritional Hx/Data Height 1.6 m Height (Calculated Centimeters) 160.0 Current Weight (lbs) 83.915 kg Weight (Calculated Kilograms) 83.9 Weight (Calculated Grams) 29640.6 [place] Body Weight 115 Body Mass Index (BMI) 32.8 Weight Status Obese GI Symptoms GI Symptoms None Last BM none noted Difficult in: None Skin Integrity/Comment: intact juventino 20 Current %PO Good (75-100%) Estimated Nutritional Goals BEE in Kcals: Adj wt of IBW Calories/Kcals/Kg 25-30 adj wt 58kg Kcals Calculated 7730-9656 Protein: Adj wt of IBW Protein g/k-1.2 Protein Calculated 58-70 Fluid: ml 1450-1740ml (1ml/kcal) Nutritional Problem 1. Problem Problem altered nutrition related labs Etiology hyperglycemia, electrolytes imbalance Signs/Symptoms: POC 225, Na 132, K 3.3, Cl 95, glucose 253 Malnutrition Alert Is there a minimum of two criteria No selected? Query Text:Check all the applicable criteria. A minimum of two criteria are recommended for diagnosis of either severe or non-severe malnutrition. Malnutrition Related to Morbid Obesity Malnutrition related to morbid obesity No Intervention/Recommendation Comments 1. [facility], KOMAL, low fat diet as ordered. MD to adjust insulin for optimal glycemic control. 2. Monitor PO intake, wt, labs and skin integrity 3. F/U as moderate risk in 3-5 days, 03/29-03/31 Expected Outcomes/Goals Expected Outcomes/Goals 1. PO intake to meet at least 75% of nutritional needs. 2. Wt stability, skin to remain intact, labs to approach WNL.
--- NOTE | 2018-04-01 05:50 | Progress Notes ---
DATE: SUBJECTIVE: Chart reviewed and the patient interviewed. Also discussed the patient's condition with the staff and reviewed records and labs. The patient is still confused and forgetful. The patient also is still withdrawn and interacting minimally with others. The patient also denies any intention to harm herself or others, but she is still guarded. Otherwise, the patient is compliant with taking her medications with no side effects of medications. ASSESSMENT: The patient is still depressed and still slightly agitated. TREATMENT PLAN: Continue Seroquel and we will adjust the dose to 25 mg twice a day. Also, we will continue to work on her irritability and her agitation as well as on discharge plans and placement issue. JOB# [id number]
[2018-04-01] MEDS: INSULIN ASPART SLIDING SCALE 100 UNITS/ML UNIT SUBQ SCH ×4 (06:37→20:15)
--- NOTE | 2018-04-01 12:45 | Internal Medicine Prog Note ---
Internal Medicine Subjective - Subjective Service Date: 04/01/18 Patient is:: awake, other (still depressed) Per staff patient has:: tolerating meds Internal Medicine Objective - Results Result Diagrams: 03/25/18 21:47 03/25/18 21:47 Recent Labs: Laboratory Last Values WBC 10.1 Th/cmm (4.8-10.8) 03/25/18 21:47 RBC 4.86 Mil/cmm (3.80-5.20) 03/25/18 21:47 Hgb 13.8 gm/dL (12-16) 03/25/18 21:47 Hct 41.2 % (41.0-60) 03/25/18 21:47 MCV 84.9 fl (81-100) 03/25/18 21:47 MCH 28.3 pg (27.0-31.0) 03/25/18 21:47 MCHC Differential 33.4 pg (28.0-36.0) 03/25/18 21:47 RDW 13.0 % (11.5-20.0) 03/25/18 21:47 Plt Count 406 Th/cmm (150-400) H 03/25/18 21:47 MPV 6.9 fl 03/25/18 21:47 Neutrophils % 63.3 % (40.0-80.0) 03/25/18 21:47 Lymphocytes % 27.3 % (20.0-50.0) 03/25/18 21:47 Monocytes % 6.3 % (2.0-10.0) 03/25/18 21:47 Eosinophils % 2.8 % (0.0-5.0) 03/25/18 21:47 Basophils % 0.3 % (0.0-2.0) 03/25/18 21:47 Sodium 132 mEq/L (136-145) L 03/25/18 21:47 Potassium 3.3 mEq/L (3.5-5.1) L 03/25/18 21:47 Chloride 95 mEq/L (98-107) L 03/25/18 21:47 Carbon Dioxide 27.0 mEq/L (21.0-31.0) 03/25/18 21:47 Anion Gap 13.3 (7.0-16.0) 03/25/18 21:47 BUN 22 mg/dL (7-25) 03/25/18 21:47 Creatinine 1.0 mg/dL (0.6-1.2) 03/25/18 21:47 Est GFR ( Amer) TNP 03/25/18 21:47 Est GFR (Non-Af Amer) TNP 03/25/18 21:47 BUN/Creatinine Ratio 22.0 03/25/18 21:47 Glucose 253 mg/dL (70-105) H 03/25/18 21:47 POC Glucose 296 MG/DL (70 - 105) H 04/01/18 11:13 Calcium 9.6 mg/dL (8.6-10.3) 03/25/18 21:47 Total Bilirubin 0.3 mg/dL (0.3-1.0) 03/25/18 21:47 AST 16 U/L (13-39) 03/25/18 21:47 ALT 13 U/L (7-52) 03/25/18 21:47 Alkaline Phosphatase 94 U/L (34-104) 03/25/18 21:47 Troponin I 0.01 ng/mL (0.01-0.05) 03/25/18 21:47 B-Natriuretic Peptide 10.9 pg/mL (5.0-100.0) 03/25/18 21:47 Total Protein 7.4 gm/dL (6.0-8.3) 03/25/18 21:47 Albumin 3.9 gm/dL (3.7-5.3) 03/25/18 21:47 Globulin 3.5 gm/dL 03/25/18 21:47 Albumin/Globulin Ratio 1.1 (1.0-1.8) 03/25/18 21:47 Triglycerides 122 mg/dL (<150) 03/26/18 06:00 Cholesterol 149 mg/dL (<200) 03/26/18 06:00 LDL Cholesterol Direct 93 mg/dL (75-193) 03/26/18 06:00 HDL Cholesterol 45 mg/dL (23-92) 03/26/18 06:00 TSH 2.09 uIU/ml (0.34-5.60) 03/25/18 21:47 - Physical Exam Vitals and I&O: Vital Signs Temp 97.1 F 04/01/18 06:26 Pulse 66 04/01/18 06:26 Resp 18 04/01/18 06:26 BP 142/71 04/01/18 06:26 Pulse Ox 97 04/01/18 06:26 Intake & Output 03/31/18 04/01/18 04/01/18 18:59 06:59 18:59 Intake Total 120 Balance 120 Intake: Oral 120 Other: # Voids 1 # Bowel Movements 1 0 Active Medications: Current Medications Acetaminophen (Tylenol) 650 mg PO Q4HR PRN PRN Reason: Mild Pain / Temp above 100 Stop: 05/25/18 00:35 Acetaminophen (Tylenol) 650 mg PO Q4HR PRN PRN Reason: MILD PAIN AND TEMP >101.F Stop: 05/26/18 08:14 Bisacodyl (Dulcolax 10 Mg Supp) 10 mg RC DAILY PRN PRN Reason: Constipation Stop: 05/26/18 14:21 Docusate Sodium (Colace) 100 mg PO DAILY [facility] Stop: 05/25/18 08:59 Last Admin: 04/01/18 08:53 Dose: 100 mg Insulin Aspart (Novolog Insulin Sliding Scale) 0 units SUBQ ACHS [facility]; Protocol Stop: 05/25/18 11:29 Last Admin: 04/01/18 11:16 Dose: 6 units Lorazepam (Ativan) 0.5 mg PO Q4HR PRN; Protocol PRN Reason: Anxiety Stop: 04/25/18 00:35 Magnesium Hydroxide (Milk Of Magnesia) 30 ml PO HS PRN PRN Reason: Constipation Stop: 05/25/18 00:40 Metformin HCl (Glucophage) 500 mg PO BID [facility] Stop: 05/25/18 08:59 Last Admin: 04/01/18 08:53 Dose: 500 mg Quetiapine Fumarate (Seroquel) 25 mg PO BID [facility]; Protocol Stop: 05/30/18 16:59 Last Admin: 04/01/18 08:52 Dose: 25 mg Sodium Phosphate (Fleet Enema) 135 ml RC Q48HR PRN PRN Reason: Constipation Stop: 05/25/18 00:42 Zolpidem Tartrate (Ambien) 5 mg PO HS PRN PRN Reason: Insomnia Stop: 05/25/18 00:35 General: alert HEENT: NC/AT, PERRLA Neck: Supple Lungs: CTAB Cardiovascular: RRR, Normal S1, Normal S2 Abdomen: soft, non-tender Extremities: excoriation Neurological: no change Internal Medicine Assmt/Plan - Assessment Assessment: DM Arthritis Dementia Alzheimer's disease psychosis - Plan Plan: cpm Nutritional Asmnt/Malnutr-PDOC - Dietary Evaluation Malnutrition Findings (Please click <Entered> for more info): Nutritional Asmnt/Malnutrition Start: 03/26/18 11: 07 Text: Status: Complete Freq: Protocol: Document 03/26/18 11:07 [facility] (Rec: 03/26/18 11:18 [facility] [email or web address]) Nutritional Asmnt/Malnutrition Patient General Information Nutritional Screening High Risk Diagnosis psychosis Pertinent Medical Hx/Surgical Hx DM, arthritis, dementia, alzheimer/s disease, adult FTT . dementia Subjective Information Glucose 253 at admission noted . Pt seen eating lunch in her room, Palestinian speaking. D/t language barrier, not able to provide nutrition education. Pt appeared good appetite. Per EMR, PO intake 100% of breakfast today. Current Diet Order/ [facility] Pertinent Medications colace, novolog, novolin, glucophage, seroquel Pertinent Labs 03/26 POC 225 03/25 Na 132, K 3.3, Cl 95, glucose 253 Nutritional Hx/Data Height 5 ft 3 in Height (Calculated Centimeters) 160.0 Current Weight (lbs) 185 lb Weight (Calculated Kilograms) 83.9 Weight (Calculated Grams) 03200.6 [place] Body Weight 115 Body Mass Index (BMI) 32.8 Weight Status Obese GI Symptoms GI Symptoms None Last BM none noted Difficult in: None Skin Integrity/Comment: intact juventino 20 Current %PO Good (75-100%) Estimated Nutritional Goals BEE in Kcals: Adj wt of IBW Calories/Kcals/Kg 25-30 adj wt 58kg Kcals Calculated 9654-9138 Protein: Adj wt of IBW Protein g/k-1.2 Protein Calculated 58-70 Fluid: ml 1450-1740ml (1ml/kcal) Nutritional Problem 1. Problem Problem altered nutrition related labs Etiology hyperglycemia, electrolytes imbalance Signs/Symptoms: POC 225, Na 132, K 3.3, Cl 95, glucose 253 Malnutrition Alert Is there a minimum of two criteria No selected? Query Text:Check all the applicable criteria. A minimum of two criteria are recommended for diagnosis of either severe or non-severe malnutrition. Malnutrition Related to Morbid Obesity Malnutrition related to morbid obesity No Intervention/Recommendation Comments 1. [facility] with [facility], KOMAL, low fat diet as ordered. MD to adjust insulin for optimal glycemic control. 2. Monitor PO intake, wt, labs and skin integrity 3. F/U as moderate risk in 3-5 days, 03/29-03/31 Expected Outcomes/Goals Expected Outcomes/Goals 1. PO intake to meet at least 75% of nutritional needs. 2. Wt stability, skin to remain intact, labs to approach WNL.
--- NOTE | 2018-04-01 16:51 | Progress Notes ---
DATE: 04/01/2018 Case was discussed with staff of the patient, reviewed records. This is covering for Dr. Edward. A 77-year-old female who was admitted on the 03/25/2018 because of yelling and screaming, transferred from [facility] because of agitation, irritability, yelling and screaming. Unable to formulate a safe plan for self-care or participate in a meaningful conversation, very hard to redirect. Continues to be easily agitated. The patient is forgetful, poor interaction with others, guarded, compliant with the medications with no side effects. No sedation, no nausea, no extrapyramidal symptoms. I will continue her Seroquel that was increased yesterday to 25 mg twice a day. We will start the patient in group therapy, milieu therapy, and adjust medications as needed. JOB# [id number]
[2018-04-02] MEDS: INSULIN ASPART SLIDING SCALE 100 UNITS/ML UNIT SUBQ SCH ×4 (06:35→20:28)
--- NOTE | 2018-04-02 14:10 | Internal Medicine Prog Note ---
Internal Medicine Subjective - Subjective Patient seen and examined:: chart reviewed Patient is:: awake, other (withdrawn ) Per staff patient has:: no adverse event, tolerating meds Internal Medicine Objective - Results Result Diagrams: 03/25/18 21:47 03/25/18 21:47 Recent Labs: Laboratory Last Values WBC 10.1 Th/cmm (4.8-10.8) 03/25/18 21:47 RBC 4.86 Mil/cmm (3.80-5.20) 03/25/18 21:47 Hgb 13.8 gm/dL (12-16) 03/25/18 21:47 Hct 41.2 % (41.0-60) 03/25/18 21:47 MCV 84.9 fl (81-100) 03/25/18 21:47 MCH 28.3 pg (27.0-31.0) 03/25/18 21:47 MCHC Differential 33.4 pg (28.0-36.0) 03/25/18 21:47 RDW 13.0 % (11.5-20.0) 03/25/18 21:47 Plt Count 406 Th/cmm (150-400) H 03/25/18 21:47 MPV 6.9 fl 03/25/18 21:47 Neutrophils % 63.3 % (40.0-80.0) 03/25/18 21:47 Lymphocytes % 27.3 % (20.0-50.0) 03/25/18 21:47 Monocytes % 6.3 % (2.0-10.0) 03/25/18 21:47 Eosinophils % 2.8 % (0.0-5.0) 03/25/18 21:47 Basophils % 0.3 % (0.0-2.0) 03/25/18 21:47 Sodium 132 mEq/L (136-145) L 03/25/18 21:47 Potassium 3.3 mEq/L (3.5-5.1) L 03/25/18 21:47 Chloride 95 mEq/L (98-107) L 03/25/18 21:47 Carbon Dioxide 27.0 mEq/L (21.0-31.0) 03/25/18 21:47 Anion Gap 13.3 (7.0-16.0) 03/25/18 21:47 BUN 22 mg/dL (7-25) 03/25/18 21:47 Creatinine 1.0 mg/dL (0.6-1.2) 03/25/18 21:47 Est GFR ( Amer) TNP 03/25/18 21:47 Est GFR (Non-Af Amer) TNP 03/25/18 21:47 BUN/Creatinine Ratio 22.0 03/25/18 21:47 Glucose 253 mg/dL (70-105) H 03/25/18 21:47 POC Glucose 191 MG/DL (70 - 105) H 04/02/18 06:05 Calcium 9.6 mg/dL (8.6-10.3) 03/25/18 21:47 Total Bilirubin 0.3 mg/dL (0.3-1.0) 03/25/18 21:47 AST 16 U/L (13-39) 03/25/18 21:47 ALT 13 U/L (7-52) 03/25/18 21:47 Alkaline Phosphatase 94 U/L (34-104) 03/25/18 21:47 Troponin I 0.01 ng/mL (0.01-0.05) 03/25/18 21:47 B-Natriuretic Peptide 10.9 pg/mL (5.0-100.0) 03/25/18 21:47 Total Protein 7.4 gm/dL (6.0-8.3) 03/25/18 21:47 Albumin 3.9 gm/dL (3.7-5.3) 03/25/18 21:47 Globulin 3.5 gm/dL 03/25/18 21:47 Albumin/Globulin Ratio 1.1 (1.0-1.8) 03/25/18 21:47 Triglycerides 122 mg/dL (<150) 03/26/18 06:00 Cholesterol 149 mg/dL (<200) 03/26/18 06:00 LDL Cholesterol Direct 93 mg/dL (75-193) 03/26/18 06:00 HDL Cholesterol 45 mg/dL (23-92) 03/26/18 06:00 TSH 2.09 uIU/ml (0.34-5.60) 03/25/18 21:47 - Physical Exam Vitals and I&O: Vital Signs Temp 97.7 F 04/02/18 05:52 Pulse 61 04/02/18 05:52 Resp 20 04/02/18 05:52 BP 136/72 04/02/18 05:52 Pulse Ox 97 04/02/18 05:52 Intake & Output 04/01/18 04/02/18 04/02/18 18:59 06:59 18:59 Intake Total 240 Balance 240 Intake: Oral 240 Other: # Voids 2 # Bowel Movements 0 Active Medications: Current Medications Acetaminophen (Tylenol) 650 mg PO Q4HR PRN PRN Reason: MILD PAIN AND TEMP >101.F Stop: 05/26/18 08:14 Bisacodyl (Dulcolax 10 Mg Supp) 10 mg RC DAILY PRN PRN Reason: Constipation Stop: 05/26/18 14:21 Docusate Sodium (Colace) 100 mg PO DAILY [facility] Stop: 05/25/18 08:59 Last Admin: 04/02/18 09:22 Dose: 100 mg Insulin Aspart (Novolog Insulin Sliding Scale) 0 units SUBQ ACHS [facility]; Protocol Stop: 05/25/18 11:29 Last Admin: 04/02/18 11:33 Dose: 2 units Magnesium Hydroxide (Milk Of Magnesia) 30 ml PO HS PRN PRN Reason: Constipation Stop: 05/25/18 00:40 Metformin HCl (Glucophage) 500 mg PO BID [facility] Stop: 05/25/18 08:59 Last Admin: 04/02/18 09:22 Dose: 500 mg Quetiapine Fumarate (Seroquel) 25 mg PO BID [facility]; Protocol Stop: 05/30/18 16:59 Last Admin: 04/02/18 09:21 Dose: 25 mg Sodium Phosphate (Fleet Enema) 135 ml RC Q48HR PRN PRN Reason: Constipation Stop: 05/25/18 00:42 General: alert HEENT: NC/AT, PERRLA Neck: Supple Lungs: CTAB Cardiovascular: RRR, Normal S1, Normal S2 Abdomen: soft, non-tender Extremities: excoriation Neurological: no change Internal Medicine Assmt/Plan - Assessment Assessment: DM Arthritis Dementia Alzheimer's disease psychosis - Plan Plan: as per psych will monitor Nutritional Asmnt/Malnutr-PDOC - Dietary Evaluation Malnutrition Findings (Please click <Entered> for more info): Nutritional Asmnt/Malnutrition Start: 03/26/18 11: 07 Text: Status: Complete Freq: Protocol: Document 03/26/18 11:07 [facility] (Rec: 03/26/18 11:18 [facility] [email or web address]) Nutritional Asmnt/Malnutrition Patient General Information Nutritional Screening High Risk Diagnosis psychosis Pertinent Medical Hx/Surgical Hx DM, arthritis, dementia, alzheimer/s disease, adult FTT . dementia Subjective Information Glucose 253 at admission noted . Pt seen eating lunch in her room, Urdu speaking. D/t language barrier, not able to provide nutrition education. Pt appeared good appetite. Per EMR, PO intake 100% of breakfast today. Current Diet Order/ [facility] Pertinent Medications colace, novolog, novolin, glucophage, seroquel Pertinent Labs 03/26 POC 225 03/25 Na 132, K 3.3, Cl 95, glucose 253 Nutritional Hx/Data Height 1.6 m Height (Calculated Centimeters) 160.0 Current Weight (lbs) 83.915 kg Weight (Calculated Kilograms) 83.9 Weight (Calculated Grams) 32209.6 [place] Body Weight 115 Body Mass Index (BMI) 32.8 Weight Status Obese GI Symptoms GI Symptoms None Last BM none noted Difficult in: None Skin Integrity/Comment: intact juventino 20 Current %PO Good (75-100%) Estimated Nutritional Goals BEE in Kcals: Adj wt of IBW Calories/Kcals/Kg 25-30 adj wt 58kg Kcals Calculated 8257-5076 Protein: Adj wt of IBW Protein g/k-1.2 Protein Calculated 58-70 Fluid: ml 1450-1740ml (1ml/kcal) Nutritional Problem 1. Problem Problem altered nutrition related labs Etiology hyperglycemia, electrolytes imbalance Signs/Symptoms: POC 225, Na 132, K 3.3, Cl 95, glucose 253 Malnutrition Alert Is there a minimum of two criteria No selected? Query Text:Check all the applicable criteria. A minimum of two criteria are recommended for diagnosis of either severe or non-severe malnutrition. Malnutrition Related to Morbid Obesity Malnutrition related to morbid obesity No Intervention/Recommendation Comments 1. [facility], KOMAL, low fat diet as ordered. MD to adjust insulin for optimal glycemic control. 2. Monitor PO intake, wt, labs and skin integrity 3. F/U as moderate risk in 3-5 days, 03/29-03/31 Expected Outcomes/Goals Expected Outcomes/Goals 1. PO intake to meet at least 75% of nutritional needs. 2. Wt stability, skin to remain intact, labs to approach WNL.
[2018-04-03] MEDS: INSULIN ASPART SLIDING SCALE 100 UNITS/ML UNIT SUBQ SCH ×4 (06:35→21:30)
--- NOTE | 2018-04-03 11:10 | Internal Medicine Prog Note ---
Internal Medicine Subjective - Subjective Service Date: 04/03/18 Patient is:: awake, other (withdrawn ) Per staff patient has:: no adverse event, tolerating meds Internal Medicine Objective - Results Result Diagrams: 03/25/18 21:47 03/25/18 21:47 Recent Labs: Laboratory Last Values WBC 10.1 Th/cmm (4.8-10.8) 03/25/18 21:47 RBC 4.86 Mil/cmm (3.80-5.20) 03/25/18 21:47 Hgb 13.8 gm/dL (12-16) 03/25/18 21:47 Hct 41.2 % (41.0-60) 03/25/18 21:47 MCV 84.9 fl (81-100) 03/25/18 21:47 MCH 28.3 pg (27.0-31.0) 03/25/18 21:47 MCHC Differential 33.4 pg (28.0-36.0) 03/25/18 21:47 RDW 13.0 % (11.5-20.0) 03/25/18 21:47 Plt Count 406 Th/cmm (150-400) H 03/25/18 21:47 MPV 6.9 fl 03/25/18 21:47 Neutrophils % 63.3 % (40.0-80.0) 03/25/18 21:47 Lymphocytes % 27.3 % (20.0-50.0) 03/25/18 21:47 Monocytes % 6.3 % (2.0-10.0) 03/25/18 21:47 Eosinophils % 2.8 % (0.0-5.0) 03/25/18 21:47 Basophils % 0.3 % (0.0-2.0) 03/25/18 21:47 Sodium 132 mEq/L (136-145) L 03/25/18 21:47 Potassium 3.3 mEq/L (3.5-5.1) L 03/25/18 21:47 Chloride 95 mEq/L (98-107) L 03/25/18 21:47 Carbon Dioxide 27.0 mEq/L (21.0-31.0) 03/25/18 21:47 Anion Gap 13.3 (7.0-16.0) 03/25/18 21:47 BUN 22 mg/dL (7-25) 03/25/18 21:47 Creatinine 1.0 mg/dL (0.6-1.2) 03/25/18 21:47 Est GFR ( Amer) TNP 03/25/18 21:47 Est GFR (Non-Af Amer) TNP 03/25/18 21:47 BUN/Creatinine Ratio 22.0 03/25/18 21:47 Glucose 253 mg/dL (70-105) H 03/25/18 21:47 POC Glucose 234 MG/DL (70 - 105) H 04/03/18 06:05 Calcium 9.6 mg/dL (8.6-10.3) 03/25/18 21:47 Total Bilirubin 0.3 mg/dL (0.3-1.0) 03/25/18 21:47 AST 16 U/L (13-39) 03/25/18 21:47 ALT 13 U/L (7-52) 03/25/18 21:47 Alkaline Phosphatase 94 U/L (34-104) 03/25/18 21:47 Troponin I 0.01 ng/mL (0.01-0.05) 03/25/18 21:47 B-Natriuretic Peptide 10.9 pg/mL (5.0-100.0) 03/25/18 21:47 Total Protein 7.4 gm/dL (6.0-8.3) 03/25/18 21:47 Albumin 3.9 gm/dL (3.7-5.3) 03/25/18 21:47 Globulin 3.5 gm/dL 03/25/18 21:47 Albumin/Globulin Ratio 1.1 (1.0-1.8) 03/25/18 21:47 Triglycerides 122 mg/dL (<150) 03/26/18 06:00 Cholesterol 149 mg/dL (<200) 03/26/18 06:00 LDL Cholesterol Direct 93 mg/dL (75-193) 03/26/18 06:00 HDL Cholesterol 45 mg/dL (23-92) 03/26/18 06:00 TSH 2.09 uIU/ml (0.34-5.60) 03/25/18 21:47 - Physical Exam Vitals and I&O: Vital Signs Temp 97.6 F 04/03/18 06:48 Pulse 74 04/03/18 06:48 Resp 18 04/03/18 06:48 BP 131/74 04/03/18 06:48 Pulse Ox 98 04/03/18 06:48 Intake & Output 04/02/18 04/03/18 04/03/18 18:59 06:59 18:59 Intake Total 900 120 Balance 900 120 Intake: Oral 900 120 Other: # Voids 3 3 # Bowel Movements 1 Active Medications: Current Medications Acetaminophen (Tylenol) 650 mg PO Q4HR PRN PRN Reason: MILD PAIN AND TEMP >101.F Stop: 05/26/18 08:14 Bisacodyl (Dulcolax 10 Mg Supp) 10 mg RC DAILY PRN PRN Reason: Constipation Stop: 05/26/18 14:21 Docusate Sodium (Colace) 100 mg PO DAILY [facility] Stop: 05/25/18 08:59 Last Admin: 04/03/18 08:22 Dose: 100 mg Insulin Aspart (Novolog Insulin Sliding Scale) 0 units SUBQ ACHS [facility]; Protocol Stop: 05/25/18 11:29 Last Admin: 04/03/18 06:35 Dose: 4 units Magnesium Hydroxide (Milk Of Magnesia) 30 ml PO HS PRN PRN Reason: Constipation Stop: 05/25/18 00:40 Metformin HCl (Glucophage) 500 mg PO BID [facility] Stop: 05/25/18 08:59 Last Admin: 04/03/18 08:23 Dose: 500 mg Quetiapine Fumarate (Seroquel) 25 mg PO BID [facility]; Protocol Stop: 05/30/18 16:59 Last Admin: 04/03/18 08:22 Dose: 25 mg Sodium Phosphate (Fleet Enema) 135 ml RC Q48HR PRN PRN Reason: Constipation Stop: 05/25/18 00:42 General: alert HEENT: NC/AT, PERRLA Neck: Supple Lungs: CTAB Cardiovascular: RRR, Normal S1, Normal S2 Abdomen: soft, non-tender Extremities: excoriation Neurological: no change Internal Medicine Assmt/Plan - Assessment Assessment: DM Arthritis Dementia Alzheimer's disease psychosis - Plan Plan: cpm Nutritional Asmnt/Malnutr-PDOC - Dietary Evaluation Malnutrition Findings (Please click <Entered> for more info): Nutritional Asmnt/Malnutrition Start: 03/26/18 11: 07 Text: Status: Complete Freq: Protocol: Document 03/26/18 11:07 [facility] (Rec: 03/26/18 11:18 [facility] [email or web address]) Nutritional Asmnt/Malnutrition Patient General Information Nutritional Screening High Risk Diagnosis psychosis Pertinent Medical Hx/Surgical Hx DM, arthritis, dementia, alzheimer/s disease, adult FTT . dementia Subjective Information Glucose 253 at admission noted . Pt seen eating lunch in her room, Maltese speaking. D/t language barrier, not able to provide nutrition education. Pt appeared good appetite. Per EMR, PO intake 100% of breakfast today. Current Diet [facility]/ [facility] Pertinent Medications colace, novolog, novolin, glucophage, seroquel Pertinent Labs 03/26 POC 225 03/25 Na 132, K 3.3, Cl 95, glucose 253 Nutritional Hx/Data Height 5 ft 3 in Height (Calculated Centimeters) 160.0 Current Weight (lbs) 185 lb Weight (Calculated Kilograms) 83.9 Weight (Calculated Grams) 31133.6 [place] Body Weight 115 Body Mass Index (BMI) 32.8 Weight Status Obese GI Symptoms GI Symptoms None Last BM none noted Difficult in: None Skin Integrity/Comment: intact juventino 20 Current %PO Good (75-100%) Estimated Nutritional Goals BEE in Kcals: Adj wt of IBW Calories/Kcals/Kg 25-30 adj wt 58kg Kcals Calculated 8158-4468 Protein: Adj wt of IBW Protein g/k-1.2 Protein Calculated 58-70 Fluid: ml 1450-1740ml (1ml/kcal) Nutritional Problem 1. Problem Problem altered nutrition related labs Etiology hyperglycemia, electrolytes imbalance Signs/Symptoms: POC 225, Na 132, K 3.3, Cl 95, glucose 253 Malnutrition Alert Is there a minimum of two criteria No selected? Query Text:Check all the applicable criteria. A minimum of two criteria are recommended for diagnosis of either severe or non-severe malnutrition. Malnutrition Related to Morbid Obesity Malnutrition related to morbid obesity No Intervention/Recommendation Comments 1. [facility], KOMAL, low fat diet as ordered. MD to adjust insulin for optimal glycemic control. 2. Monitor PO intake, wt, labs and skin integrity 3. F/U as moderate risk in 3-5 days, 03/29-03/31 Expected Outcomes/Goals Expected Outcomes/Goals 1. PO intake to meet at least 75% of nutritional needs. 2. Wt stability, skin to remain intact, labs to approach WNL.
--- NOTE | 2018-04-04 06:05 | Progress Notes ---
DATE: 04/03/2018 SUBJECTIVE: Chart reviewed and the patient interviewed. Also discussed the patient's condition with the staff and reviewed records and labs. The patient is still anxious and she is still in irritable mood. The patient also still wants to be left alone and is still depressed. She also has been pacing up and down, also confused and forgetful. Otherwise, the patient continued to take Seroquel, no side effects of Seroquel. ASSESSMENT: The patient is still confused and still needs redirections. TREATMENT PLAN: Continue to monitor behavior and condition closely. Also, continue adjusting psychotropic medications and followup. JOB# [id number]
--- NOTE | 2018-04-04 06:11 | Progress Notes ---
DATE: 04/02/2018 SUBJECTIVE: Chart reviewed and the patient interviewed. Also discussed the patient's condition with the staff and reviewed records and labs. The patient continued to be forgetful. The patient also is still restless and she is still in irritable mood. The patient also is still confused and she is still rambling in [place] language. The patient also still has episodes of anger and irritability. Otherwise, the patient is compliant with taking her medications with no side effects. ASSESSMENT: The patient is still agitated and psychotic. TREATMENT PLAN: Continue to monitor her behavior and her condition closely. Also, continue adjusting psychotropic medications and working on behavioral modification. [facility]# [id number]
[2018-04-04] MEDS: INSULIN ASPART SLIDING SCALE 100 UNITS/ML UNIT SUBQ SCH ×2 (06:58→11:56)
--- NOTE | 2018-04-04 14:55 | Internal Medicine Prog Note ---
Internal Medicine Subjective - Subjective Patient seen and examined:: chart reviewed Patient is:: awake, other (patient still confused) Per staff patient has:: no adverse event, tolerating meds Internal Medicine Objective - Results Result Diagrams: 03/25/18 21:47 03/25/18 21:47 Recent Labs: Laboratory Last Values WBC 10.1 Th/cmm (4.8-10.8) 03/25/18 21:47 RBC 4.86 Mil/cmm (3.80-5.20) 03/25/18 21:47 Hgb 13.8 gm/dL (12-16) 03/25/18 21:47 Hct 41.2 % (41.0-60) 03/25/18 21:47 MCV 84.9 fl (81-100) 03/25/18 21:47 MCH 28.3 pg (27.0-31.0) 03/25/18 21:47 MCHC Differential 33.4 pg (28.0-36.0) 03/25/18 21:47 RDW 13.0 % (11.5-20.0) 03/25/18 21:47 Plt Count 406 Th/cmm (150-400) H 03/25/18 21:47 MPV 6.9 fl 03/25/18 21:47 Neutrophils % 63.3 % (40.0-80.0) 03/25/18 21:47 Lymphocytes % 27.3 % (20.0-50.0) 03/25/18 21:47 Monocytes % 6.3 % (2.0-10.0) 03/25/18 21:47 Eosinophils % 2.8 % (0.0-5.0) 03/25/18 21:47 Basophils % 0.3 % (0.0-2.0) 03/25/18 21:47 Sodium 132 mEq/L (136-145) L 03/25/18 21:47 Potassium 3.3 mEq/L (3.5-5.1) L 03/25/18 21:47 Chloride 95 mEq/L (98-107) L 03/25/18 21:47 Carbon Dioxide 27.0 mEq/L (21.0-31.0) 03/25/18 21:47 Anion Gap 13.3 (7.0-16.0) 03/25/18 21:47 BUN 22 mg/dL (7-25) 03/25/18 21:47 Creatinine 1.0 mg/dL (0.6-1.2) 03/25/18 21:47 Est GFR ( Amer) TNP 03/25/18 21:47 Est GFR (Non-Af Amer) TNP 03/25/18 21:47 BUN/Creatinine Ratio 22.0 03/25/18 21:47 Glucose 253 mg/dL (70-105) H 03/25/18 21:47 POC Glucose 339 MG/DL (70 - 105) H 04/04/18 11:44 Calcium 9.6 mg/dL (8.6-10.3) 03/25/18 21:47 Total Bilirubin 0.3 mg/dL (0.3-1.0) 03/25/18 21:47 AST 16 U/L (13-39) 03/25/18 21:47 ALT 13 U/L (7-52) 03/25/18 21:47 Alkaline Phosphatase 94 U/L (34-104) 03/25/18 21:47 Troponin I 0.01 ng/mL (0.01-0.05) 03/25/18 21:47 B-Natriuretic Peptide 10.9 pg/mL (5.0-100.0) 03/25/18 21:47 Total Protein 7.4 gm/dL (6.0-8.3) 03/25/18 21:47 Albumin 3.9 gm/dL (3.7-5.3) 03/25/18 21:47 Globulin 3.5 gm/dL 03/25/18 21:47 Albumin/Globulin Ratio 1.1 (1.0-1.8) 03/25/18 21:47 Triglycerides 122 mg/dL (<150) 03/26/18 06:00 Cholesterol 149 mg/dL (<200) 03/26/18 06:00 LDL Cholesterol Direct 93 mg/dL (75-193) 03/26/18 06:00 HDL Cholesterol 45 mg/dL (23-92) 03/26/18 06:00 TSH 2.09 uIU/ml (0.34-5.60) 03/25/18 21:47 - Physical Exam Vitals and I&O: Vital Signs Temp 98.3 F 04/04/18 14:00 Pulse 75 11/16/18 14:00 Resp 20 04/04/18 14:00 BP 129/78 04/04/18 14:00 Pulse Ox 98 04/04/18 14:00 Intake & Output 04/03/18 04/04/18 04/04/18 18:59 06:59 18:59 Intake Total 1200 240 Balance 1200 240 Intake: Oral 1200 240 Other: # Voids 2 # Bowel Movements 1 Active Medications: Current Medications Acetaminophen (Tylenol) 650 mg PO Q4HR PRN PRN Reason: MILD PAIN AND TEMP >101.F Stop: 05/26/18 08:14 Bisacodyl (Dulcolax 10 Mg Supp) 10 mg RC DAILY PRN PRN Reason: Constipation Stop: 05/26/18 14:21 Docusate Sodium (Colace) 100 mg PO DAILY [facility] Stop: 05/25/18 08:59 Last Admin: 04/04/18 08:53 Dose: 100 mg Insulin Aspart (Novolog Insulin Sliding Scale) 0 units SUBQ ACHS [facility]; Protocol Stop: 05/25/18 11:29 Last Admin: 04/04/18 11:56 Dose: 8 units Magnesium Hydroxide (Milk Of Magnesia) 30 ml PO HS PRN PRN Reason: Constipation Stop: 05/25/18 00:40 Metformin HCl (Glucophage) 500 mg PO BID [facility] Stop: 05/25/18 08:59 Last Admin: 04/04/18 08:53 Dose: 500 mg Quetiapine Fumarate (Seroquel) 25 mg PO BID [facility]; Protocol Stop: 05/30/18 16:59 Last Admin: 04/04/18 08:53 Dose: 25 mg Sodium Phosphate (Fleet Enema) 135 ml RC Q48HR PRN PRN Reason: Constipation Stop: 05/25/18 00:42 General: alert HEENT: NC/AT, PERRLA Neck: Supple Lungs: CTAB Cardiovascular: RRR, Normal S1, Normal S2 Abdomen: soft, non-tender Extremities: excoriation Neurological: no change Internal Medicine Assmt/Plan - Assessment Assessment: DM Arthritis Dementia Alzheimer's disease psychosis - Plan Plan: as per psych will monitor Nutritional Asmnt/Malnutr-PDOC - Dietary Evaluation Malnutrition Findings (Please click <Entered> for more info): Nutritional Asmnt/Malnutrition Start: 03/26/18 11: 07 Text: Status: Complete Freq: Protocol: Document 03/26/18 11:07 LCEDILSON (Rec: 03/26/18 11:18 [email or web address]) Nutritional Asmnt/Malnutrition Patient General Information Nutritional Screening High Risk Diagnosis psychosis Pertinent Medical Hx/Surgical Hx DM, arthritis, dementia, alzheimer/s disease, adult FTT . dementia Subjective Information Glucose 253 at admission noted . Pt seen eating lunch in her room, Dominican speaking. D/t language barrier, not able to provide nutrition education. Pt appeared good appetite. Per EMR, PO intake 100% of breakfast today. Current Diet Order/ Nutrition Support CCHO-45gm Pertinent Medications colace, novolog, novolin, glucophage, seroquel Pertinent Labs 03/26 POC 225 03/25 Na 132, K 3.3, Cl 95, glucose 253 Nutritional Hx/Data Height 1.6 m Height (Calculated Centimeters) 160.0 Current Weight (lbs) 83.915 kg Weight (Calculated Kilograms) 83.9 Weight (Calculated Grams) 71588.6 [place] Body Weight 115 Body Mass Index (BMI) 32.8 Weight Status Obese GI Symptoms GI Symptoms None Last BM none noted Difficult in: None Skin Integrity/Comment: intact juventino 20 Current %PO Good (75-100%) Estimated Nutritional Goals BEE in Kcals: Adj wt of IBW Calories/Kcals/Kg 25-30 adj wt 58kg Kcals Calculated 2775-3383 Protein: Adj wt of IBW Protein g/k-1.2 Protein Calculated 58-70 Fluid: ml 1450-1740ml (1ml/kcal) Nutritional Problem 1. Problem Problem altered nutrition related labs Etiology hyperglycemia, electrolytes imbalance Signs/Symptoms: POC 225, Na 132, K 3.3, Cl 95, glucose 253 Malnutrition Alert Is there a minimum of two criteria No selected? Query Text:Check all the applicable criteria. A minimum of two criteria are recommended for diagnosis of either severe or non-severe malnutrition. Malnutrition Related to Morbid Obesity Malnutrition related to morbid obesity No Intervention/Recommendation Comments 1. Continue with CCHO 45gm, KOMAL, low fat diet as ordered. MD to adjust insulin for optimal glycemic control. 2. Monitor PO intake, wt, labs and skin integrity 3. F/U as moderate risk in 3-5 days, 03/29-03/31 Expected Outcomes/Goals Expected Outcomes/Goals 1. PO intake to meet at least 75% of nutritional needs. 2. Wt stability, skin to remain intact, labs to approach WNL.
--- NOTE | 2018-04-05 01:15 | Discharge Summary ---
DATE OF DISCHARGE: 04/04/2018 PATIENT'S AGE: 77. SEX: Female. PHYSICIAN: Dr. Edward. FINAL DIAGNOSIS/PRIMARY DIAGNOSIS: Unspecified psychosis. SECONDARY DIAGNOSIS: Dementia, moderate, with psychotic features. MEDICAL DIAGNOSIS: Rmp-[id number] diabetes mellitus. REASON FOR HOSPITALIZATION: The patient was admitted to the hospital from [facility] because of irritability and agitation and inability to follow directions. The patient also was banging on doors. HOSPITAL COURSE: The patient continued to be severely agitated and in irritable mood. The patient also was resisting care. The patient started on Seroquel 25 mg twice a day; that helped the patient's agitation and the patient was slightly calmer. She also was interacting more. The patient was not suicidal or homicidal and she was easier to follow directions and the patient was discharged from the hospital. Physical exam of the patient showed no major medical problems. Also, blood workup was basically within normal. AFTER-DISCHARGE PLANS: The patient discharged from the hospital from [facility] with plans to follow her up there. [facility]# [id number]
== END 2018-04-04 16:15 | DRG 885 ==
LOC: ER 21:06 → GERO 22:55
PROVIDERS: ADMIT Psychiatry & Neurology Psychiatry; ATTEND Psychiatry & Neurology Psychiatry
DX: F29 Unspecified psychosis not due to a substance or known physiological condition (principal); F02.81 Dementia in other diseases classified elsewhere, unspecified severity, with behavioral disturbance; E87.1 Hypo-osmolality and hyponatremia; G30.9 Alzheimer's disease, unspecified; E11.9 Type 2 diabetes mellitus without complications; M19.90 Unspecified osteoarthritis, unspecified site; E87.6 Hypokalemia
CPT/HCPCS: 36415-UA; 71045-TC; 80053-TC; 80061-TC; 82948-90; 83036-90; 83880-TC; 84443-TC; 84484-TC; 85025-TC; 93005; J1815; Z7610